=== PATIENT | female | born 1975 | race Caucasian/White ===

== ENCOUNTER 2016-04-04 21:00 | Emergency (ER) | payer SELFPAY ==
[2016-04-04] MEDS ORDERED: Sodium Chloride 0.9% 1,000 ML PRIMARY IV ONE ×2 (21:17→21:43)
[2016-04-04] MEDS ORDERED: KETOROLAC 30 MG/1 ML VIAL IVP ONE (21:17)
[2016-04-04] MEDS ORDERED: NORMAL SALINE 10 ML SYRINGE FLUSH IVP PRN (21:17)
[2016-04-04] MEDS ORDERED: Prochlorperazine Edisylate Inj 10mg/2ml vial IVP ONE (21:22)
[2016-04-04] MEDS ORDERED: diphenhydrAMINE 50 MG/1 ML VIAL IVP ONE (21:22)
[2016-04-04 21:46] LABS: ASPARTATE AMINO TRANSFERASE 28 IU/L (8-39); BILIRUBIN,TOTAL 0.5 mg/dL (0.3-1.2); BLOOD UREA NITROGEN 7 mg/dL (7-22); BUN/CREATININE RATIO 8.75 (6-20); CHLORIDE 105 meq/L (98-112); CREATININE 0.8 mg/dL (0.50-1.20); EST GLOMERULAR FILTRATION > 60 (>60 ml/min/1.73m(2)); GLUCOSE 97 mg/dL (78-110); POTASSIUM 3.6 meq/L (3.8-5.2); SODIUM 136 meq/L (135-145)
[2016-04-04 21:48] LABS: MEAN PLATELET VOLUME 10.5 FL (7.4-12.2); RDW COEFFICIENT OF VARIATION 13.3 % (11.5-14.5)
[2016-04-04 21:50] LABS: HEMATOCRIT 41.4 % (37.0-47.0); HEMOGLOBIN 14.4 g/dL (12.0-16.0); MAGNESIUM 2.1 mg/dL (1.6-2.4); MEAN CORPUSCULAR HEMOGLOBIN 32.4 PG (27-31); MEAN CORPUSCULAR HGB CONC 34.8 g/dL (33-37); RED BLOOD COUNT 4.44 10^6/uL (4.20-5.40); WHITE BLOOD COUNT 5.46 10^3/uL (4.8-10.8)
[2016-04-04 22:07] LABS: PLATELET MORPHOLOGY COMMENT NORMAL MORPHOLOGY (NORM)
[2016-04-04 22:08] LABS: BAND NEUTROPHILS % 0 % (0-10); BASOPHILS % (MANUAL) 1 % (0-1); EOSINOPHILS % (MANUAL) 1 % (0-8); LYMPHOCYTES % (MANUAL) 53 % (10-50); MONOCYTES % (MANUAL) 7 % (0-12); NEUTROPHILS % (MANUAL) 37 % (50-80)
[2016-04-04] MEDS ORDERED: AZITHROMYCIN 250 MG TABLET PO ONE (22:48)
[2016-04-04 23:48] VITALS: RESP 18; TEMP 97.3
--- NOTE | 2016-04-04 23:58 | PDOC ---
General Adult HPI - General Chief Complaint: General Medical Stated Complaint: Headache, dizziness, nausea Date Seen by Provider: 04/04/16 Time Seen by Provider: 21:05 Source: POSITIVE: Patient Exam Limitations: POSITIVE: No limitations Nurse's Notes Reviewed & Considered: Yes - History of Present Illness Initial Comment: The patient is a 41-year-old female who presents to the emergency department with continued cough, nausea and general malaise. She states that approximately 5 days ago she developed upper respiratory symptoms including congestion, cough and chills. This was associated with significant body aches. She was evaluated at the clinic a couple of days ago and diagnosed with a viral syndrome. She was given cough medication. She states over the past 24 hours her cough seems to have worsened and is now productive. She also has a headache. She has continued nausea and general malaise. She denies any chest pain or swelling in her extremities. She does smoke approximately half pack of cigarettes per day. Have you received a tetanus shot in the past 10 years?: Yes - Patient Home Medications Home Medications: Home Medications Azithromycin [Zithromax] 250 mg PO DAILY #4 tab 04/04/16 Guaifenesin/Codeine Phosphate [Codeine-Guaifen 10-100 mg/5 ml] 10 mg PO PRN PRN 04/04/16 - Patient Allergies Allergies/Adverse Reactions: Allergies Allergy/AdvReac Type Severity Reaction Status Date / Time penicillin G Allergy RASH Verified 04/04/16 21:07 Past Medical History - damir SAENZ History: Denies History Cardiovascular History: Denies History Respiratory History: Denies History Gastrointestinal History: Denies History Genitourinary History: Denies History Endocrine History: Denies History Musculoskeletal History: Denies History Prosthesis or Implant: No Neurological History: Denies History Blood Disorders: Denies History Psychiatric History: Denies History Female Reproductive History: Denies History Obstetrical History: Delivery Cancer History: Denies History In Past Year Been Physically Harmed or Verbally Threatened: No History of MDRO: No Tobacco Use: Current Every Day Smoker Alcohol Use: Occasionally Substance Use Type: None Previous Surgical History: Yes Type / Date of Surgery: x 2. oral surgery Significant Family History: Heart disease, Cancer Past Medical History Reviewed: Reviewed - No Changes ROS - Limitations ROS Limitations: No Limitations Constitution: REPORTS: Chills Cardiovascular: DENIES: Chest Pain, Heart Palpitations, Edema Respiratory: REPORTS: Cough Productive, Shortness Of Breath Neurological: REPORTS: Headache, Dizziness. DENIES: Numbness, Weakness Gastrointestinal: REPORTS: Nausea, Vomitting Endocrine: REPORTS: Fatigue Musculoskeletal: REPORTS: Muscle Aches Eyes: REPORTS: Denies Symptoms ENT: REPORTS: Congestion, Sore Throat Skin: DENIES: Rash General Adult Exam - General Appearance General Appearance: POSITIVE: Alert, Cooperative, No Acute Distress - HEENT HEENT: POSITIVE: Head Inspection Nml, Eyes Inspection Nml, Ears Inspection Nml, Pharynx Inspect. Nml, Dry Mucous Membranes - Neck Neck: POSITIVE: Normal Inspection, Lymphadenopathy (She does have a palpable large cervical lymph node on the right side anteriorly) - Respiratory Respiratory: POSITIVE: No Respiratory Distress, Breath Sounds Normal - Cardiovascular Cardiovascular: POSITIVE: Regular Rate & Rhythm, No Murmur Peripheral Pulses: Dorsalis-pedis (R): 2+, Dorsalis-pedis (L): 2+ - Abdomen Abdomen: Soft: (All Quadrants), Denies Tenderness: (All Quadrants), No Distention: (All Quadrants) - Back Back: POSITIVE: Normal Inspection - Skin Skin: POSITIVE: Normal Color, No Rash - Extremities Extremity: Normal ROM: (All Extremities), Normal Inspection: (All Extremities) General Adult Progress - Results Reviewed by me Xrays/CTs/US Reviewed by me: Yes Radiology Findings: Chest x-ray shows normal heart size, no infiltrates. Lab Results Reviewed: Yes Lab Results:: Laboratory Results 04/04/16 Range/Units 21:34 WBC 5.46 (4.8-10.8) 10^3/uL RBC 4.44 (4.20-5.40) 10^6/uL Hgb 14.4 (12.0-16.0) g/dL Hct 41.4 (37.0-47.0) % MCV 93.2 (81-99) FL MCH 32.4 H (27-31) PG MCHC 34.8 (33-37) g/dL RDW Std Deviation 44.2 (39-50) fL RDW Coeff of Lori 13.3 (11.5-14.5) % Plt Count 126 L (140-350) 10*3/uL MPV 10.5 (7.4-12.2) FL Neutrophils % (Manual) 37 L (50-80) % Band Neutrophils % 0 (0-10) % Lymphocytes % (Manual) 53 H (10-50) % Monocytes % (Manual) 7 (0-12) % Eosinophils % (Manual) 1 (0-8) % Basophils % (Manual) 1 (0-1) % Metamyelocytes % Not Reportable Myelocytes % Not Reportable Promyelocytes % Not Reportable Blast Cells 1 (0-1) % WBC Morphology Comment Normal morphology (NORM) Plt Morphology Comment Normal morphology (NORM) RBC Morph Comment Normal morphology (NORM) Sodium 136 (135-145) meq/L Potassium 3.6 L (3.8-5.2) meq/L Chloride 105 (98-112) meq/L Carbon Dioxide 22 L (23-33) meq/L Anion Gap 9 (5-20) BUN 7 (7-22) mg/dL Creatinine 0.8 (0.50-1.20) mg/dL Estimated GFR > 60 (>60 ml/min/1.73m(2)) BUN/Creatinine Ratio 8.75 (6-20) Glucose 97 (78-110) mg/dL Calculated Osmolality 279.0 (267-292) mOsm/kg Calcium 9.0 (8.7-10.7) mg/dL Magnesium 2.1 (1.6-2.4) mg/dL Total Bilirubin 0.5 (0.3-1.2) mg/dL AST 28 (8-39) IU/L ALT 36 (9-52) IU/L Alkaline Phosphatase 99 (38-126) IU/L Total Creatine Kinase 150 H (30-136) IU/L C-Reactive Protein 1.0 H (0.0-0.9) mg/dL Total Protein 7.0 (6.1-8.0) g/dL Albumin 4.0 (3.5-4.8) g/dL Globulin 3.0 (2.50-4.10) g/dL Albumin/Globulin Ratio 1.30 (1.3-2.0) mg/g - Patient's Progress MDM / ED Course: Shortly after arrival an IV was established and the patient did receive a 1 L bolus of normal saline. She also received Toradol 30 mg IV, Compazine 2.5 mg IV and Benadryl 25 mg IV. Her headache improved significantly and her muscle aches were significantly better. Her influenza screen is negative however I do suspect that clinically she likely has had influenza. In addition I think she has some secondary bronchitis or possibly some early pneumonia. At this point she is outside the window for treatment of influenza. Recommend continuation of ibuprofen 600 mg every 6 hours as needed for pain/fever. She is to push fluids. She was started on Zithromax 500 mg today followed by 250 mg daily for 4 days. She will return to the emergency room if she develops increased shortness of breath, dehydration, any worsening or change in symptoms. She is advised follow-up with primary care if no improvement in 3-5 days. - Consult Counseled: POSITIVE: Patient, Family, RE: Lab Results, RE: Radiology Results, RE : DX, RE: Need for F/U Patient Care Time - Estimated PCT Patient Care Time (In Minutes): 25 Vital Signs - Recent Vital Signs Vital Signs: Vital Signs (Last 8 hours) Temp Pulse Resp BP Pulse Ox 04/04/16 21:00 97.3 F 75 18 131/89 93 - VS Reviewed Vital Signs Reviewed: Yes Discharge Clinical Impression: Viral syndrome, Bronchitis Condition: Stable Prescriptions / Orders: Azithromycin [Zithromax] 250 mg PO DAILY #4 tab Patient Instructions Given at Discharge: Acute Bronchitis (ED), Viral Syndrome (ED) Additional Instructions: Your influenza test here was negative however I do suspect that you have had influenza which is an upper respiratory viral infection. At this point recommend continuation of symptomatic treatment with ibuprofen 600 mg every 6 hours as needed for pain. Push fluids. In addition you may have bronchitis or an early pneumonia. This will be treated with Zithromax 500 mg today followed by 250 mg daily for 4 days. You do have an enlarged lymph node on the right side of your neck. This is likely related to your current viral infection. If this does not resolve in the next 2-3 weeks I would recommend follow-up for this. Return to the emergency room if increased shortness of breath, dehydration, any worsening or change in symptoms. Follow Up With: NONE,NONE [Primary Care Provider] -
--- NOTE | 2016-04-05 09:07 | DI ---
XR CXR 2VW PA/LAT,04/04/2016 9:17 PM: Clinical History: Cough Previous Exam: None at this facility. Findings: PA and lateral views of the chest are obtained, and demonstrate clear lungs. The cardiomediastinum an d bony thorax are unremarkable except for some mild degenerative changes of the thoracic spine. Impression: Normal chest.
== END 2016-04-04 23:06 | disposition home or self-care (01) ==
LOC: ER 21:00
DX: J20.9 Acute bronchitis, unspecified (principal); B34.9 Viral infection, unspecified; R11.0 Nausea; Z72.0 Tobacco use; R42 Dizziness and giddiness
CPT/HCPCS: 71020; 80053; 82550; 83735; 85007; 86140; 87804; 96361; 96374; 96375; 99283 ×2; J1200; J1885; J0780; J7030